=== PATIENT | male | born 1950 | race Two or more races ===

== ENCOUNTER → 2024-03-01 | Outpatient (CLI) | payer MEDICARE, MEDICAID, SELFPAY ==
[2024-03-01 13:26] LABS: Basophils # (Auto) 0.1 Thou/mm3 (0.0-0.2); Basophils % (Auto) 1 % (0-2.5); Eosinophils # (Auto) 0.5 Thou/mm3 (0.0-0.5); Eosinophils % (Auto) 5 % (0-10); Hematocrit 39.8 % (41.0-53.0); Hemoglobin 12.8 g/dL (13.5-16.0); Immature Granulocytes % (Auto) 1 % (0-0); Immature Granulocytes Auto 0.04 Thou/mm3 (0.00-0.00); Lymphocytes % (Auto) 35 % (10-50); Mean Corpuscular HGB Conc 32.2 g/dl (31.0-37.0); Mean Corpuscular Hemoglobin 28.3 pg (25.0-35.0); Mean Corpuscular Volume 88 fL (80-100); Monocytes # (Auto) 0.8 Thou/mm3 (0.0-0.8); Monocytes % (Auto) 9 % (0-12); Neutrophils # (Auto) 4.1 Thou/mm3 (1.8-7.7); Neutrophils % (Auto) 49 % (37-80); Nucleated Red Blood Cell % 0 /100 WBC (0); Platelet Count 234 Thou/mm3 (140-440); RDW Standard Deviation 42.9 fL (35.1-43.9); Red Blood Count 4.52 Miln/mm3 (4.50-5.90); White Blood Count 8.5 Thou/mm3 (3.8-10.6)
[2024-03-01 13:39] LABS: INR 0.9 (0.9-1.3); Partial Thromboplastin Time 24.8 Seconds (22.0-36.0); Prothrombin Time 10.4 Seconds (9.0-12.2)
[2024-03-01 13:45] LABS: Anion Gap 9 (7-16); BUN/Creatinine Ratio 22 Ratio (12-20); Blood Urea Nitrogen 39 mg/dL (9-23); Calcium 9.3 mg/dL (8.3-10.6); Carbon Dioxide 26.5 mMol/L (20.0-31.0); Chloride 104 mMol/L (98-107); Creatinine (Component) 1.8 mg/dL (0.6-1.3); Glucose 197 mg/dL (74-106); Osmolality,Calculated 291 (275-295); Sodium 139 mMol/L (136-145); eGFR 39 See Note
== END | disposition home or self-care (01) ==
LOC: COPL 12:57
PROVIDERS: PCP Physician Assistant; Referring Provider Radiology Diagnostic Radiology; Visit Provider Radiology Diagnostic Radiology
DX: Z01.818 Encounter for other preprocedural examination (principal); I73.9 Peripheral vascular disease, unspecified; R53.1 Weakness; R60.9 Edema, unspecified; R53.83 Other fatigue; R79.1 Abnormal coagulation profile; I82.409 Acute embolism and thrombosis of unspecified deep veins of unspecified lower extremity
CPT/HCPCS: 36415; 80048; 85025; 85610; 85730

== ENCOUNTER → 2024-09-29 | Outpatient (CLI) | payer MEDICARE, MEDICAID, SELFPAY ==
--- NOTE | 2024-09-29 08:45 | XR_ITS ---
Examination: Retroperitoneal ultrasound, complete Technique: Multiple high resolution grayscale images of the retroperitoneum obtained, including kidneys and bladder. Exam date and time:September 29, 2024 0847 hours INDICATIONS: Diagnosis chronic kidney disease stage III on laboratory examination 2 months ago. FINDINGS: Right kidney 11.3 cm cortex 2.0 cm 14 mm 12 mm renal cyst Left kidney 11.1 cm cortex 1.6 cm Bilateral moderate renal scar formation, no hydronephrosis Contracted urinary bladder Prostate volume 35 cc no prostate nodules IMPRESSION: Moderate bilateral renal parenchymal scar formation
== END | disposition home or self-care (01) ==
PROVIDERS: PCP Physician Assistant; Referring Provider Internal Medicine Nephrology; Visit Provider Internal Medicine Nephrology
DX: N28.89 Other specified disorders of kidney and ureter (principal)
CPT/HCPCS: 76770

== ENCOUNTER → 2024-10-26 | Outpatient (CLI) | payer MEDICARE, MEDICAID, SELFPAY ==
--- NOTE | 2024-10-26 16:15 | XR_ITS ---
Examination: Knee bilateral, 6 views Technique: Knee AP, lateral, oblique, each knee total 6 views Date and time of exam: October 26, 2024, 1639 hrs. Indications: Bilateral knee pain beginning 15 years ago Findings: Partial visualization left superficial femoral artery stent Advanced bilateral tricompartment osteoarthritis, most severe involving the medial joint spaces No fractures or dislocations Small to moderate bilateral knee effusions Bilateral posterior ossified joint bodies Impression: Advanced bilateral tricompartment osteoarthritis
== END | disposition home or self-care (01) ==
LOC: CDIM 16:11
PROVIDERS: Referring Provider Radiology Diagnostic Radiology; Visit Provider Radiology Diagnostic Radiology
DX: M17.0 Bilateral primary osteoarthritis of knee (principal)
CPT/HCPCS: 73562